=== PATIENT | male | born 1970 | race Caucasian/White ===

== ENCOUNTER → 2020-01-31 08:00 | Outpatient (BNVA) | payer SELFPAY | PROVIDERS: PCP Internal Medicine; Visit Provider Internal Medicine | DX: I10 Essential (primary) hypertension (principal); M54.5 Low back pain; G89.29 Other chronic pain | CPT/HCPCS: 80061; 83036 ==

== ENCOUNTER 2022-10-28 11:00 | Emergency (ER) | payer MEDICARE, MEDICAID, SELFPAY ==
[2022-10-28 11:16] VITALS: BP 146/91; PULSE 62; RESP 14; TEMP 36.8; O2SAT 98; BMI 39.0
[2022-10-28 11:43] VITALS: BP 153/101; PULSE 79; O2SAT 96
--- NOTE | 2022-10-28 11:44 | CT_ITS ---
WS: [id number] CT HEAD TECHNIQUE: Noncontrast CT of the head obtained from the skullbase to the vertex. CLINICAL INFORMATION: fall injury and hit head, +LOC COMPARISON: None. DLP: 1151.[address] scans at [facility] use at least one of these dose optimization techniques: automated e xposure control; mA and/or kV adjustment per patient size (includes targeted exams where dose is matc hed to clinical indication); or iterative reconstruction. FINDINGS: No evidence of intracranial hemorrhage or mass effect. Ventricular system and basal cisterns are ward nt. No extra-axial fluid collections. No evidence of mass or mass effect. Normal best-white different iation. Tiny nondisplaced fracture involving the LEFT occipital calvarium inferiorly. Paranasal sinuses and mastoid air cells are well aerated. . Scalp contusion and edema overlying the L EFT parietal calvarium near the vertex. CT/CT head wo con* [id number] IMPRESSION: 1. No evidence of intracranial hemorrhage or mass effect. 2. Tiny nondisplaced fracture involving the LEFT occipital calvarium inferiorl y. 3. Scalp contusion and edema overlying the LEFT parietal calvarium near the ve rtex. 4. Normal best-white differentiation. 5. No other suspicious findings. Notified MIKE Owens at 10/28/2022 12:10 PM.
--- NOTE | 2022-10-28 11:45 | W.ED.FALL ---
Documented by User: IMKE Owens 10/29/22 07:44 HPI - Fall General: Chief Complaint: Fall Stated Complaint: fell off ladder Time Seen by Provider: 10/28/22 11:33 History of Present Illness: Patient is a 52-year-old male comes to the ED with head injury. Patient was at work today and standing on a 4 foot ladder. One of his coworkers was working on different side of house and came back around towards patient and found him on the ground. Patient had loss of consciousness. Patient does not remember falling. But since fall he feels a little confused and dizzy and has some nausea as well. Patient's daughter is present and states that patient does seem a bit confused and does not remember being at her house this morning right after fall. Given his symptoms they brought him here to the ED for further evaluation. He denies any preceding symptoms this morning says he felt normal. Patient is not on any blood thinners. Denies any headache, weakness or numbness/tingling to any extremities or 1 side of body or face. Associated symptoms-after fall: Reports confusion; Denies abdominal pain, chest pain, headache(s), hematuria or neck pain Review of Systems Const: Denies: fever(s), chills or fatigue Eyes: Denies: change in vision or eye discomfort ENMT: Denies: throat pain, odynophagia, nasal discharge or nasal congestion Card: Denies: chest pain, palpitations, edema, swelling of feet/ankles, dyspnea on exertion or orthopnea Resp: Denies: dyspnea, productive cough or non-productive cough GI: Reports: nausea; Denies: abdominal pain, vomiting, diarrhea, constipation or hematochezia : Denies: flank pain, difficulty urinating, dysuria or hematuria Musc: Denies: neck pain, back pain or extremity swelling Skin/Breast: Denies: rash or new lesions Neuro: Reports: dizziness (After fall/head injury), confusion and other (Head injury with loss of consciousness.); Denies: headache(s), numbness in extremities or weakness in extremities [facility] ED PFSH: Medical History Benign essential HTN Family History Father Diabetes Heart disease Social History Smoking and tobacco status: current every day smoker Alcohol intake: current Alcohol intake frequency: holidays/special occasions only History of recent travel: No Physical Exam Const: COMMON NORMALS: no acute distress and alert ORIENTATION/CONSCIOUSNESS: Yes oriented to person and Yes oriented to place HENMT: COMMON NORMALS: normocephalic HEAD & SCALP: normocephalic MOUTH: Normal oral and palatal mucosa present THROAT: posterior oropharynx normal and uvula midline Neck/C-Spine: COMMON NORMALS: supple GENERAL: Yes normal visual inspection CERVICAL SPINE: Yes cervical ROM normal, No Cervical spine tenderness, No Paracervical muscle tenderness and No Trapezius muscle tenderness Resp: COMMON NORMALS: normal respiratory effort, No retractions, No use of accessory muscles and clear to auscultation bilaterally AUSCULTATION: clear to auscultation bilaterally Cardio: COMMON NORMALS: regular rate, regular rhythm, S1 normal heart sound present, S2 normal heart sound present, No gallops present (Cardio), No clicks present (Cardio), No murmurs present (Cardio) and Peripheral pulses 2+ throughout RATE: regular rate RHYTHM: regular rhythm HEART SOUNDS: S1 normal heart sound present and S2 normal heart sound present PERIPHERAL PULSES: Peripheral pulses 2+ throughout GI: COMMON NORMALS: Normal to inspection, nondistended, normoactive bowel sounds present, Soft to palpation, non-tender and no masses PALPATION: Yes Soft to palpation : COMMON NORMALS: Yes no CVA tenderness BLADDER/KIDNEY EXAM: Yes no CVA tenderness Back/Pelvis: COMMON NORMALS: no CVA tenderness Extremity: COMMON NORMALS: normal to inspection Neuro: SENSORIUM/ORIENTATION: Yes alert, Yes oriented to person, Yes oriented to place and Yes Orientation impaired (Patient struggled with time orientation questions.) COORDINATION/BALANCE: [id number] test normal SPEECH: speech normal GAIT: Yes Normal gait present COORDINATION: [id number] test normal Skin: GENERAL SKIN EXAM: dry skin Course Vital Signs: Vital signs: Vital Signs Temperature 98.2 F 10/28/22 11:16 Pulse Rate 76 10/28/22 12:44 Respiratory Rate 18 10/28/22 12:44 Blood Pressure 153/101 10/28/22 11:43 Pulse Oximetry 96 10/28/22 12:44 Oxygen Delivery Me thod 10/28/22 11:43 MDM - Fall Medical Decision Making Patient is a 52-year-old male comes to the ED with head injury. Patient was at work today and standing on a 4 foot ladder. One of his coworkers was working on different side of house and came back around towards patient and found him on the ground. Patient had loss of consciousness. Patient does not remember falling. But since fall he feels a little confused and dizzy and has some nausea as well. Patient is not on a blood thinner. Vitals are stable. Patient is alert and oriented to person and place but has trouble with time orientation questions. The rest of his neuro exam is benign. CT of head shows tiny nondisplaced fracture involving the left occipital calvarium inferiorly with no evidence of intracranial hemorrhage or mass-effect. Patient was stable for discharge home and diagnosed with fracture of occipital bone of skull with loss of consciousness. I told patient to follow-up with his primary care physician within 3 days for reevaluation and his primary care doctor can clear him to go back to work at that time as well. Strict return to ED precautions given. Dr. Galvan reviewed patient case and agreed with plan. Lab Data Radiology Impressions Head CT 10/28/22 11:44 IMPRESSION: 1. No evidence of intracranial hemorrhage or mass effect. 2. Tiny nondisplaced fracture involving the LEFT occipital calvarium inferiorly. 3. Scalp contusion and edema overlying the LEFT parietal calvarium near the vertex. 4. Normal best-white differentiation. 5. No other suspicious findings. Notified MIKE Owens at 10/28/2022 12:10 PM. Discharge Plan Discharge Patient Disposition: Home Clinical Impression: Fracture of occipital bone of skull with loss of consciousness Condition: Stable Prescriptions: No Action Excedrin Extra Strength 250-250-65 mg tablet 1 tab PO PRN PRN (Reason: Pain) lisinopril-hydrochlorothiazide 20-25 mg tablet 1 tab PO QPM Discharge Orders: Discharge ED (Routine); Ordered 10/28/22 Ordered By: Nikita Teixeira Referrals: Chau Duggan MD [Primary Care Provider] - Discharge Diet: Regular Discharge Activity: Increase activity as tolerated and Limit activity as instructed Patient Instructions: Concussion/Head Injury - Adult, Skull Fracture (ED) Activity Restrictions/Additional Instructions: Follow-up with primary care physician on MondayOctober 31 for reevaluation. Take [id number] Tylenol or ibuprofen for any headaches.. Return to the ER or your medical provider if condition worsens. Please read and understand discharge instructions. Thank you for choosing [facility] for your healthcare needs today. Please realize this is an emergency room and that we are providing you with a medical screening exam and this may not be complete and all inclusive of all the testing and or work up that you may need to determine your ailment or severity of your illness. It is very important that you follow up as instructed or that you return to the Emergency Department should you have concerns or if your condition changes or worsens in any way. Stand Alone Forms: Work/School Release Coding Level of Care Code ED Chemistry Technologist for Chg Fwd Exam Comprehensive Documented by User: Dale Galvan DO 10/29/22 09:08 HPI - Fall General: Chief Complaint: Fall Stated Complaint: fell off ladder Time Seen by Provider: 10/28/22 11:33 [facility] ED PFSH: Medical History Benign essential HTN Family History Father Diabetes Heart disease Social History Smoking and tobacco status: current every day smoker Alcohol intake: current Alcohol intake frequency: holidays/special occasions only History of recent travel: No Course Vital Signs: Vital signs: Vital Signs Temperature 98.2 F 10/28/22 11:16 Pulse Rate 76 10/28/22 12:44 Respiratory Rate 18 10/28/22 12:44 Blood Pressure 153/101 10/28/22 11:43 Pulse Oximetry 96 10/28/22 12:44 Oxygen Delivery Me thod 10/28/22 11:43 MDM - Fall Medical Decision Making Patient is a 52-year-old male comes to the ED with head injury. Patient was at work today and standing on a 4 foot ladder. One of his coworkers was working on different side of house and came back around towards patient and found him on the ground. Patient had loss of consciousness. Patient does not remember falling. But since fall he feels a little confused and dizzy and has some nausea as well. Patient is not on a blood thinner. Vitals are stable. Patient is alert and oriented to person and place but has trouble with time orientation questions. The rest of his neuro exam is benign. CT of head shows tiny nondisplaced fracture involving the left occipital calvarium inferiorly with no evidence of intracranial hemorrhage or mass-effect. Patient was stable for discharge home and diagnosed with fracture of occipital bone of skull with loss of consciousness. I told patient to follow-up with his primary care physician within 3 days for reevaluation and his primary care doctor can clear him to go back to work at that time as well. Strict return to ED precautions given. Dr. Galvan reviewed patient case and agreed with plan. Chart reviewed and patient discussed with midlevel. Agree with assessment and plan. Lab Data Radiology Impressions Head CT 10/28/22 11:44 IMPRESSION: 1. No evidence of intracranial hemorrhage or mass effect. 2. Tiny nondisplaced fracture involving the LEFT occipital calvarium inferiorly. 3. Scalp contusion and edema overlying the LEFT parietal calvarium near the vertex. 4. Normal best-white differentiation. 5. No other suspicious findings. Notified MIKE Owens at 10/28/2022 12:10 PM. Discharge Plan Discharge Patient Disposition: Home Clinical Impression: Fracture of occipital bone of skull with loss of consciousness Condition: Stable Prescriptions: No Action Excedrin Extra Strength 250-250-65 mg tablet 1 tab PO PRN PRN (Reason: Pain) lisinopril-hydrochlorothiazide 20-25 mg tablet 1 tab PO QPM Discharge Orders: Discharge ED (Routine); Ordered 10/28/22 Ordered By: Nikita Teixeira Referrals: Chau Duggan MD [Primary Care Provider] - Discharge Diet: Regular Discharge Activity: Increase activity as tolerated and Limit activity as instructed Patient Instructions: Concussion/Head Injury - Adult, Skull Fracture (ED) Activity Restrictions/Additional Instructions: Follow-up with primary care physician on MondayOctober 31 for reevaluation. Take [id number] Tylenol or ibuprofen for any headaches.. Return to the ER or your medical provider if condition worsens. Please read and understand discharge instructions. Thank you for choosing [facility] for your healthcare needs today. Please realize this is an emergency room and that we are providing you with a medical screening exam and this may not be complete and all inclusive of all the testing and or work up that you may need to determine your ailment or severity of your illness. It is very important that you follow up as instructed or that you return to the Emergency Department should you have concerns or if your condition changes or worsens in any way. Stand Alone Forms: Work/School Release Coding Level of Care Code ED Chemistry Technologist for Arianna Fwd Exam Comprehensive
[2022-10-28 12:44] VITALS: PULSE 76; RESP 18; O2SAT 96
== END 2022-10-28 12:45 | disposition home or self-care (01) ==
PROVIDERS: Emergency Provider Physician Assistant; PCP Internal Medicine
DX: S02.119A Unspecified fracture of occiput, initial encounter for closed fracture (principal); I10 Essential (primary) hypertension; F17.210 Nicotine dependence, cigarettes, uncomplicated; W11.XXXA Fall on and from ladder, initial encounter
CPT/HCPCS: 70450; 99284

== ENCOUNTER → 2025-05-29 08:50 | Outpatient (BNVA) | payer MEDICAID, SELFPAY | PROVIDERS: PCP Family Medicine; Visit Provider Family Medicine | DX: Z13.6 Encounter for screening for cardiovascular disorders (principal) | CPT/HCPCS: 80053; 80061; 83036; 84439; 84443; 85025 ==

== ENCOUNTER → 2025-09-22 14:43 | Outpatient (BNVA) | payer MEDICAID, SELFPAY | PROVIDERS: PCP Family Medicine; Visit Provider Family Medicine | DX: E11.9 Type 2 diabetes mellitus without complications (principal); E78.1 Pure hyperglyceridemia | CPT/HCPCS: 80048; 80061; 83036; 83721 ==